=== PATIENT | male | born 1990 | race Caucasian/White ===

== ENCOUNTER 2020-08-24 02:28 | Emergency (ER) | payer SELFPAY ==
[~2020-08-24] VITALS: Ht 182.9 cm; Wt 109.0 kg
[2020-08-24 02:34] VITALS: BP 144/85
[2020-08-24] MEDS ORDERED: DIPH,PERTUSS(ACELL),TET VAC/PF 0.5 ML SYRINGE. VAX IM ONE (03:15)
[2020-08-24] MEDS ORDERED: AMOX1TAB61 PO (03:23)
[2020-08-24] MEDS ORDERED: [UNRECOGNIZED DRUG - CODE] TP (03:23)
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
== END 2020-08-24 03:55 | disposition home or self-care (01) ==
LOC: ER 02:28
DX: S11.91XA Laceration without foreign body of unspecified part of neck, initial encounter (principal); F17.200 Nicotine dependence, unspecified, uncomplicated; X99.1XXA Assault by knife, initial encounter; Y93.89 Activity, other specified; Y92.89 Other specified places as the place of occurrence of the external cause; Y99.8 Other external cause status
CPT/HCPCS: 90471; 90715; 99283